=== PATIENT | female | born 1950 | race Caucasian/White ===

== ENCOUNTER 2018-11-25 21:31 | Emergency (ER) | payer OTHER, BC ==
[2018-11-25] MEDS ORDERED: HYDROCODONE/APAP 5/325 MG TAB ONE (22:59)
--- NOTE | 2018-11-25 23:21 | ER ---
Nurse's Notes [facility] Name: Juana Esposito Age: 67 yrs Sex: Female : 1950 Arrival Date: 11/25/2018 Time: 21:41 Bed 14 Private MD: Diagnosis: Fall due to bumping against object;Pain in right knee;Contusion of right knee Presentation: 11/25 21:55 Presenting complaint: Patient states: Her dog darted in front of her and she tripped aj1 and fell onto her right knee and right leg. Reports pain to right knee and right lower leg. Transition of care: patient was not received from another setting of care. Onset of symptoms was November 25, 2018 at 17:00. Risk Assessment: Do you want to hurt yourself or someone else? Patient reports no desire to harm self or others. Initial Sepsis Screen: Does the patient meet any 2 criteria? No. Patient's initial sepsis screen is negative. Does the patient have a suspected source of infection? No. Patient's initial sepsis screen is negative. Care prior to arrival: None. 21:55 Method Of Arrival: [facility] 21:55 Acuity: MARCELL 4 aj1 Triage Assessment: 22:01 General: Appears in no apparent distress. uncomfortable, Behavior is calm, cooperative, aj1 appropriate for age. Pain: Complains of pain in lateral aspect of right knee Pain currently is 2 out of 10 on a pain scale. Neuro: Level of Consciousness is awake, alert, obeys commands. Cardiovascular: Patient's skin is warm and dry. Respiratory: Airway is patent Respiratory effort is even, unlabored, Respiratory pattern is regular, symmetrical. Historical: - Allergies: 22:01 PENICILLINS; aj1 22:01 Demerol; aj1 22:01 Cartia XT; aj1 - Home Meds: 22:01 diclofenac oral oral [Active]; hydroxychloroquine oral oral [Active]; Humira aj1 subcutaneous subcutaneous [Active]; losartan oral oral [Active]; [place] Thyroid Oral [Active]; Restasis ophthalmic ophthalmic [Active]; - PMHx: 22:01 Arthritis; Hypothyroidism; Hypertension; aj1 - Immunization history:: Flu vaccine is not up to date. - Social history:: Smoking status: Patient/guardian denies using tobacco. - Ebola Screening: : Patient denies travel to an Ebola-affected area in the 21 days before illness onset. Screenin:15 Abuse screen: Denies threats or abuse. Nutritional screening: No deficits noted. jb4 Tuberculosis screening: No symptoms or risk factors identified. Fall Risk None identified. Assessment: 22:10 General: Appears in no apparent distress. comfortable, Behavior is calm, cooperative, jb4 appropriate for age. Pain: Complains of pain in right catherine Pain does not radiate. Pain currently is 2 out of 10 on a pain scale. Quality of pain is described as throbbing. Neuro: Level of Consciousness is awake, alert, obeys commands, Oriented to person, place, time, situation. Cardiovascular: Patient's skin is warm and dry. Respiratory: Airway is patent Respiratory effort is even, unlabored, Respiratory pattern is regular, symmetrical. GI: No deficits noted. No signs and/or symptoms were reported involving the gastrointestinal system. : No deficits noted. No signs and/or symptoms were reported regarding the genitourinary system. EENT: No deficits noted. No signs and/or symptoms were reported regarding the EENT system. Derm: Skin is intact, Skin is pink, warm \T\ dry. Musculoskeletal: Circulation, motion, and sensation intact. Range of motion: intact in all extremities. Injury Description: Bruise sustained to right catherine. 23:37 Reassessment: Patient appears in no apparent distress at this time. Patient and/or jb4 family updated on plan of care and expected duration. Pain level reassessed. Patient is alert, oriented x 3, equal unlabored respirations, skin warm/dry/pink. Vital Signs: 22:01 BP 176 / 97; Pulse 87; Resp 18; Temp 98.0; Pulse Ox 98% on R/A; Weight 81.65 kg (R); aj1 Height 5 ft. 4 in. (162.56 cm) (R); Pain 2/10; 23:25 BP 146 / 76; Pulse 72; Resp 16; Pulse Ox 96% on R/A; jb4 22:01 Body Mass Index 30.90 (81.65 kg, 162.56 cm) aj1 ED Course: 21:41 Patient arrived in ED. cl3 21:57 Triage completed. aj1 22:01 Arm band placed on Patient placed in waiting room, Patient notified of wait time. aj1 22:15 Patient has correct armband on for positive identification. Bed in low position. Call jb4 light in reach. Side rails up X 1. Pulse ox on. NIBP on. 22:20 Kirby Luke, RN is Primary Nurse. jb4 22:25 [facility]af[facility] Frankel [facility]C [facility]. snw 22:25 Timo Drake MD is Attending Physician. snw 22:33 X-ray completed. Portable x-ray completed in exam room. Patient tolerated procedure mh1 well. 22:37 Knee Right 3 View XRAY In Process Unspecified. EDMS 23:38 No provider procedures requiring assistance completed. Patient did not have IV access jb4 during this emergency room visit. Administered Medications: 23:02 Drug: [place] 5 mg-325 mg 1 tabs {Note: Rass score 0.} Route: PO; jb4 23:35 Follow up: Response: No adverse reaction; Pain is decreased; RASS: Alert and Calm (0) jb4 Outcome: 23:20 Discharge ordered by MD. snw 23:38 Discharged to home via wheelchair, with family. jb4 23:38 Condition: stable 23:38 Discharge instructions given to patient, family, Instructed on discharge instructions, follow up and referral plans. medication usage, Demonstrated understanding of instructions, follow-up care, medications, Prescriptions given X 2. 23:39 Patient left the ED. jb4 Signatures: Dispatcher [employer] EDMS Klaudia Gayle RN RN aj1 Dafne Frankel FNP-C [facility] Perla [facility] Kirby Luke RN RN jb4 Geraldine Navarro 3
--- NOTE | 2018-11-25 23:22 | EDPHYS ---
Physician Documentation [facility] Name: Juana Esposito Age: 67 yrs Sex: Female : 1950 Arrival Date: 11/25/2018 Time: 21:41 Bed 14 Private MD: ED Physician Timo Drake HPI: 11/25 22:56 This 67 yrs old Female presents to ER via Ambulatory with complaints of Fall snw Injury. 22:56 Details of fall: The patient fell from an upright position, while walking. Onset: The snw symptoms/episode began/occurred suddenly, just prior to arrival. Associated injuries: The patient sustained right knee, contusion, painful injury, swelling. Severity of symptoms: At their worst the symptoms were moderate. The patient has not experienced similar symptoms in the past. It is unknown whether or not the patient has recently seen a physician. no LOC, no other injuries. Historical: - Allergies: 22:01 PENICILLINS; aj1 22:01 Demerol; aj1 22:01 Cartia XT; aj1 - Home Meds: 22:01 diclofenac oral oral [Active]; hydroxychloroquine oral oral [Active]; Humira aj1 subcutaneous subcutaneous [Active]; losartan oral oral [Active]; [place] Thyroid Oral [Active]; Restasis ophthalmic ophthalmic [Active]; - PMHx: 22:01 Arthritis; Hypothyroidism; Hypertension; aj1 - Immunization history:: Flu vaccine is not up to date. - Social history:: Smoking status: Patient/guardian denies using tobacco. - Ebola Screening: : Patient denies travel to an Ebola-affected area in the 21 days before illness onset. ROS: 22:51 Constitutional: Negative for fever, chills, and weight loss, Eyes: Negative for injury, snw pain, redness, and discharge, ENT: Negative for injury, pain, and discharge, Neck: Negative for injury, pain, and swelling, Cardiovascular: Negative for chest pain, palpitations, and edema, Respiratory: Negative for shortness of breath, cough, wheezing, and pleuritic chest pain, Abdomen/GI: Negative for abdominal pain, nausea, vomiting, diarrhea, and constipation, Back: Negative for injury and pain, : Negative for injury, bleeding, discharge, and swelling, MS/Extremity: Negative for injury and deformity, Skin: Negative for injury, rash, and discoloration, Neuro: Negative for headache, weakness, numbness, tingling, and seizure, Psych: Negative for depression, anxiety, suicide ideation, homicidal ideation, and hallucinations. Exam: 22:51 Constitutional: This is a well developed, well nourished patient who is awake, alert, snw and in no acute distress. Head/Face: Normocephalic, atraumatic. Eyes: Pupils equal round and reactive to light, extra-ocular motions intact. Lids and lashes normal. Conjunctiva and sclera are non-icteric and not injected. Cornea within normal limits. Periorbital areas with no swelling, redness, or edema. ENT: Nares patent. No nasal discharge, no septal abnormalities noted. Tympanic membranes are normal and external auditory canals are clear. Oropharynx with no redness, swelling, or masses, exudates, or evidence of obstruction, uvula midline. Mucous membranes moist. Neck: Trachea midline, no thyromegaly or masses palpated, and no cervical lymphadenopathy. Supple, full range of motion without nuchal rigidity, or vertebral point tenderness. No Meningismus. Chest/axilla: Normal chest wall appearance and motion. Nontender with no deformity. No lesions are appreciated. Cardiovascular: Regular rate and rhythm with a normal S1 and S2. No gallops, murmurs, or rubs. Normal PMI, no JVD. No pulse deficits. Respiratory: Lungs have equal breath sounds bilaterally, clear to auscultation and percussion. No rales, rhonchi or wheezes noted. No increased work of breathing, no retractions or nasal flaring. Abdomen/GI: Soft, non-tender, with normal bowel sounds. No distension or tympany. No guarding or rebound. No evidence of tenderness throughout. Back: No spinal tenderness. No costovertebral tenderness. Full range of motion. Neuro: Awake and alert, GCS 15, oriented to person, place, time, and situation. Cranial nerves II-XII grossly intact. Motor strength 5/5 in all extremities. Sensory grossly intact. Cerebellar exam normal. Normal gait. Psych: Awake, alert, with orientation to person, place and time. Behavior, mood, and affect are within normal limits. 22:51 Skin: injury, contusion(s), that are deep, of the distal right knee. Vital Signs: 22:01 BP 176 / 97; Pulse 87; Resp 18; Temp 98.0; Pulse Ox 98% on R/A; Weight 81.65 kg (R); aj1 Height 5 ft. 4 in. (162.56 cm) (R); Pain 2/10; 23:25 BP 146 / 76; Pulse 72; Resp 16; Pulse Ox 96% on R/A; jb4 22:01 Body Mass Index 30.90 (81.65 kg, 162.56 cm) [facility] MDM: 22:26 Patient medically screened. snw 23:21 Data reviewed: vital signs, nurses notes. Data interpreted: Pulse oximetry: on room air snw is 98 %. Interpretation: normal. Counseling: I had a detailed discussion with the patient and/or guardian regarding: the historical points, exam findings, and any diagnostic results supporting the discharge/admit diagnosis, the presence of at least one elevated blood pressure reading (>120/80) during this emergency department visit, radiology results, the need for outpatient follow up, to return to the emergency department if symptoms worsen or persist or if there are any questions or concerns that arise at home. Special discussion: Based on the history and exam findings, there is no indication for further emergent testing or inpatient evaluation. I discussed with the patient/guardian the need to see the orthopedic surgeon for further evaluation of the symptoms. I discussed with the patient/guardian the need to see the primary care provider for further evaluation of the symptoms. 11/25 22:02 Order name: Knee Right 3 View XRAY [facility] 11/25 22:56 Order name: Luis wrap-joint: right knee; Complete Time: 23:21 snw Administered Medications: 23:02 Drug: [place] 5 mg-325 mg 1 tabs {Note: Rass score 0.} Route: PO; jb4 23:35 Follow up: Response: No adverse reaction; Pain is decreased; RASS: Alert and Calm (0) jb4 Disposition: 11/26 12:47 Co-signature as Attending Physician, Timo Drake MD I agree with the assessment and varsha plan of care. Disposition: 11/25/18 23:20 Discharged to Home. Impression: Fall due to bumping against object, Pain in right knee, Contusion of right knee. - Condition is Stable. - Discharge Instructions: Elastic Bandage and RICE, Joint Pain, Contusion, How to Use a Knee Brace, Musculoskeletal Pain, Knee Pain, Cryotherapy, Wshl-oz-Beai, Heat Therapy. - Prescriptions for Diclofenac Sodium 75 mg Oral Tablet Sustained Release - take 1 tablet by ORAL route 2 times per day; 30 tablet. orphenadrine citrate 100 mg Oral Tablet Sustained Release - take 1 tablet by ORAL route 2 times per day As needed; 20 tablet. - Medication Reconciliation Form, Thank You Letter, Antibiotic Education, Prescription Opioid Use form. - Follow up: Private Physician; When: 2 - 3 days; Reason: Recheck today's complaints, Continuance of care, Re-evaluation by your physician. Follow up: Emergency Department; When: As needed; Reason: Worsening of condition. Signatures: Dispatcher [employer] EDKlaudia Fraser, RN RN ajTimo Doherty MD MD cha Therrien, Shelly, MASKING MACHINE OPERATOR-C MASKING MACHINE OPERATOR-[facility] Kirby Luke RN RN jb4 Corrections: (The following items were deleted from the chart) 11/25 23:39 23:20 11/25/2018 23:20 Discharged to Home. Impression: Fall due to bumping against jb4 object; Pain in right knee; Contusion of right knee. Condition is Stable. Forms are Medication Reconciliation Form, Thank You Letter, Antibiotic Education, Prescription Opioid Use. Follow up: Private Physician; When: 2 - 3 days; Reason: Recheck today's complaints, Continuance of care, Re-evaluation by your physician. Follow up: Emergency Department; When: As needed; Reason: Worsening of condition. snw
[2018-11-26 01:53] VITALS: BP 146/76; O2SAT 96
--- NOTE | 2018-11-26 07:43 | RAD REPORT ---
EXAM DESCRIPTION: RAD - Knee Right 3 View - 11/25/2018 10:34 pm CLINICAL HISTORY: Right knee pain status post injury FINDINGS: No fracture or dislocation is seen. Bones appear osteoporotic. If the patient continues to have symptoms to suggest an occult fracture, ligamentous or meniscal inju ry MRI would be recommended
== END 2018-11-25 23:39 | disposition home or self-care (01) ==
LOC: ER 21:31
DX: M25.561 Pain in right knee (principal); S80.01XA Contusion of right knee, initial encounter; W01.0XXA Fall on same level from slipping, tripping and stumbling without subsequent striking against object, initial encounter; Y93.89 Activity, other specified; Y92.9 Unspecified place or not applicable; E03.9 Hypothyroidism, unspecified; I10 Essential (primary) hypertension; M19.90 Unspecified osteoarthritis, unspecified site; Z88.0 Allergy status to penicillin; Z88.6 Allergy status to analgesic agent
CPT/HCPCS: 99284